=== PATIENT | female | born 1975 | race African-American/Black ===

== ENCOUNTER 2021-02-15 12:52 | Emergency (ER) | payer SELFPAY ==
[~2021-02-15] VITALS: Ht 157.5 cm; Wt 83.2 kg
[2021-02-15] MEDS ORDERED: ASPIRIN CHEWABLE 81 MG TABLET. PO ONE (14:00)
--- NOTE | 2021-02-15 14:01 | ED.ADGEN ---
General Adult EDM: Chief Complaint: FLU SYMPTOM HPI: HPI: Patient is a 45 year old female coming in for left-sided chest pain for the past 3 days. Patient denies any fevers but states she has had nonproductive cough. Patient states the pain radiates up to her neck is worse taking a deep breath. Was diagnosed with COVID-19 9 days ago, tested +7 days ago. Patient states she initially had fevers at the beginning of the illness but has not had any over the past week. Denies any GI complaints. Denies any personal medical history. Family history of diabetes. Denies any upper or lower extremity edema. Review of Systems: Review of Systems: All other systems within normal limits except for as noted in the HPI Current Medications: Current Medications Medications (Trade) Dose Ordered Sig/Tello Start Time Stop Time Status Last Admin Dose Admin Aspirin (Aspirin Chewable) 324 mg 1X ONCE 02/15/21 14:00 02/15/21 14:24 DC 02/15/21 14:40 324 MG Aspirin (Ecotrin) 81 mg STK-MED ONCE 02/15/21 14:14 02/15/21 14:14 DC Info (CONTRAST GIVEN -- Rx MONITORING) 1 each PRN DAILY PRN 02/15/21 16:00 02/17/21 15:59 Iohexol (Omnipaque 350 Mg/ml) 100 ml 1X ONCE 02/15/21 16:00 02/15/21 16:01 DC 02/15/21 16:40 100 ML Methylprednisolone Sodium Succinate (SOLU-Medrol 125MG VIAL) 125 mg 1X ONCE 02/15/21 17:15 02/15/21 17:16 DC Allergies: Allergies: Allergies Coded Allergies Type Severity Reaction Last Updated Verified sulfamethoxazole Allergy Intermediate 02/15/21 Yes trimethoprim Allergy Intermediate 02/15/21 Yes Physical Exam: PE: Constitutional: Well developed, well nourished, no acute distress, non-toxic appearance. [] HENT: Normocephalic, atraumatic, bilateral external ears normal, nose normal. [] Eyes: PERRLA, conjunctiva normal, no discharge. [] Neck: No rigidity, supple, no stridor. No neck tenderness, no crepitus Cardiovascular: Regular rate and rhythm, brisk cap refill [] Lungs & Thorax: Non labored symmetric respirations, no tachypnea or respiratory distress. No chest pain with palpation. Symmetric radial and DP pulses Abdomen: Soft, nondistended. Skin: Warm, dry, no erythema, no rash. [] Back: Unremarkable Extremities: No deformities, range of motion grossly intact, no lower extremity edema [] Neurologic: Alert and oriented X 3, no focal deficits noted. [] Psychologic: Affect normal, judgement normal, mood normal. [] Current Patient Data: Labs: Laboratory Tests Test 02/15/21 14:30 White Blood Count 7.8 x10^3/uL (4.0-11.0) Red Blood Count 4.53 x10^6/uL (3.50-5.40) Hemoglobin 10.5 g/dL (12.0-15.5) L Hematocrit 32.7 % (36.0-47.0) L Mean Corpuscular Volume 72 fL (79-100) L Mean Corpuscular Hemoglobin 23 pg (25-35) L Mean Corpuscular Hemoglobin Concent 32 g/dL (31-37) Red Cell Distribution Width 18.7 % (11.5-14.5) H Platelet Count 284 x10^3/uL (140-400) Neutrophils (%) (Auto) 70 % (31-73) Lymphocytes (%) (Auto) 17 % (24-48) L Monocytes (%) (Auto) 13 % (0-9) H Eosinophils (%) (Auto) 0 % (0-3) Basophils (%) (Auto) 0 % (0-3) Neutrophils # (Auto) 5.4 x10^3/uL (1.8-7.7) Lymphocytes # (Auto) 1.3 x10^3/uL (1.0-4.8) Monocytes # (Auto) 1.0 x10^3/uL (0.0-1.1) Eosinophils # (Auto) 0.0 x10^3/uL (0.0-0.7) Basophils # (Auto) 0.0 x10^3/uL (0.0-0.2) D-Dimer (Araceli) 0.61 ug/mlFEU (0.00-0.50) H Sodium Level 141 mmol/L (136-145) Potassium Level 4.0 mmol/L (3.5-5.1) Chloride Level 106 mmol/L (98-107) Carbon Dioxide Level 31 mmol/L (21-32) Anion Gap 4 (6-14) L Blood Urea Nitrogen 6 mg/dL (7-20) L Creatinine 0.9 mg/dL (0.6-1.0) Estimated GFR (Cockcroft-Gault) 81.6 BUN/Creatinine Ratio 7 (6-20) Glucose Level 103 mg/dL (70-99) H Calcium Level 9.1 mg/dL (8.5-10.1) Total Bilirubin 0.3 mg/dL (0.2-1.0) Aspartate Amino Transferase (AST) 22 U/L (15-37) Alanine Aminotransferase (ALT) 44 U/L (14-59) Alkaline Phosphatase 89 U/L (46-116) Troponin I Quantitative < 0.017 ng/mL (0.000-0.055) Total Protein 7.5 g/dL (6.4-8.2) Albumin 3.3 g/dL (3.4-5.0) L Albumin/Globulin Ratio 0.8 (1.0-1.7) L Laboratory Tests 02/15/21 14:30 Laboratory Tests 02/15/21 14:30 Vital Signs: Vital Signs Date Time Temp Pulse Resp B/P (MAP) Pulse Ox O2 Delivery O2 Flow Rate FiO2 02/15/21 14:00 98.2 86 18 122/68 100 Room Air 98.2 EKG: EKG: Sinus rhythm, heart rate 70/min, normal axis, no ST elevation or depression, no ectopy nonspecific T wave inversion in lead III [] Heart Score: C/O Chest Pain: Yes HEART Score for Chest Pain: HEART Score for Chest Pain Response (Comments) Value History Slighlty/Non-Suspicious 0 ECG Normal 0 Age >45 - < 65 1 Risk Factors 1 or 2 Risk Factors 1 Troponin < Normal Limit 0 Total 2 Risk Factors: Risk Factors: DM, Current or recent (<one month) smoker, HTN, HLP, family history of CAD, obesity. Risk Scores: Score 0 - 3: 2.5% MACE over next 6 weeks - Discharge Home Score 4 - 6: 20.3% MACE over next 6 weeks - Admit for Clinical Observation Score 7 - 10: 72.7% MACE over next 6 weeks - Early Invasive Strategies Radiology/Procedures: Radiology/Procedures: [facility] [address] [place] [address] IMAGING REPORT Signed PATIENT: CARMELA GREEN ACCOUNT: [id number] : 1975 LOCATION: ER AGE: 45 SEX: F EXAM STATUS: PRE ER ORD. PHYSICIAN: MAINOR OCAMPO MD REASON: left chest pain, covid PROCEDURE: CHEST AP ONLY XR CHEST 1V History: Reason: left chest pain, covid / Spl. Instructions: / History: Comparison: None. Findings: Mild multifocal ill-defined opacities. No pleural effusion. No pneumothorax. Portable technique accentuates cardiac size. Impression: 1. Mild multifocal ill-defined opacities, can be seen with viral pneumonia. Electronically signed by: Nuno Maxwell DO (02/15/2021 2:20 PM) [facility] DICTATED and SIGNED BY: NUNO MAXWELL DO DATE: 02/15/21 [id number] [] Course & Med Decision Making: Course & Med Decision Making Pertinent Labs and Imaging studies reviewed. (See chart for details) [] Dragon Disclaimer: Dragon Disclaimer: This electronic medical record was generated, in whole or in part, using a voice recognition dictation system. Departure Departure Impression: Primary Impression: Pneumonia due to 2019-nCoV Disposition: HOME / SELF CARE / HOMELESS Condition: STABLE Patient Instructions: Cough, Adult Scripts Guaifenesin/Codeine Phosphate (Codeine-Guaifen 10-100 mg/5 ml) 120 Ml Liquid 5 ML PO PRN Q6HRS PRN for cough and congestion MDD 20 Milliliter(s) for 6 Days, #120 ML 0 Refills Prov: MAINOR OCAMPO MD 02/15/21 Albuterol Sulfate (PROAIR HFA INHALER) 8.5 Gm Hfa.aer.ad 2 PUFF IH PRN Q4-6HRS PRN for COUGH for 21 Days, #1 INHALER 0 Refills Prov: MAINOR OCAMPO MD 02/15/21 Doxycycline Hyclate (DOXYCYCLINE HYCLATE) 100 Mg Capsule 1 CAP PO BID for antibiotic for 5 Days, #10 CAP Prov: MAINOR OCAMPO MD 02/15/21 Methylprednisolone (MEDROL) 4 Mg Tab.ds.pk 1 PKG PO UD for inflammation, #1 PKG Prov: MAINOR OCAMPO MD 02/15/21 MAINOR OCAMPO MD Feb 15, 2021 14:01
[2021-02-15] MEDS ORDERED: ASPIRIN ENTERIC COATED 81 MG TABLET.DR. PO ONE (14:14)
--- NOTE | 2021-02-15 14:23 | RAD ---
XR CHEST 1V History: Reason: left chest pain, covid / Spl. Instructions: / History: Comparison: None. Findings: Mild multifocal ill-defined opacities. No pleural effusion. No pneumothorax. Portable technique accen tuates cardiac size. Impression: 1. Mild multifocal ill-defined opacities, can be seen with viral pneumonia. Electronically signed by: Nuno Ahumada DO (02/15/2021 2:20 PM) [facility] [place]
[2021-02-15 14:48] LABS: BASO % 0 % (0-3); EOS % 0 % (0-3); HEMATOCRIT 32.7 % (36.0-47.0); HEMOGLOBIN 10.5 g/dL (12.0-15.5); LYMPH # 1.3 x10^3/uL (1.0-4.8); LYMPH % 17 % (24-48); MEAN CORPUSCULAR HEMOGLOBIN 23 pg (25-35); MEAN CORPUSCULAR HGB CONC 32 g/dL (31-37); MEAN CORPUSCULAR VOLUME 72 fL (79-100); MONO % 13 % (0-9); NEUT # 5.4 x10^3/uL (1.8-7.7); NEUT % 70 % (31-73); PLATELET COUNT 284 x10^3/uL (140-400); RED BLOOD COUNT 4.53 x10^6/uL (3.50-5.40); RED CELL DISTRIBUTION WIDTH 18.7 % (11.5-14.5); WHITE BLOOD COUNT 7.8 x10^3/uL (4.0-11.0)
[2021-02-15 14:58] LABS: CALCIUM 9.1 mg/dL (8.5-10.1); CREATININE 0.9 mg/dL (0.6-1.0); GFR 81.6
[2021-02-15 15:04] LABS: ALBUMIN 3.3 g/dL (3.4-5.0); ALBUMIN/GLOBULIN RATIO 0.8 (1.0-1.7); TOTAL BILIRUBIN 0.3 mg/dL (0.2-1.0); TOTAL PROTEIN 7.5 g/dL (6.4-8.2)
[2021-02-15] MEDS ORDERED: CONTRAST GIVEN. MC PRN (16:00)
[2021-02-15] MEDS ORDERED: IOHEXOL 350 MG/ML 100 ML VIAL. IV ONE (16:00)
--- NOTE | 2021-02-15 16:54 | RAD ---
EXAM: CT angiography of the chest with intravenous contrast. HISTORY: Covid 19. Chest pain. Elevated d-dimer. TECHNIQUE: Computed tomographic images of the chest were obtained following the administration of int ravenous contrast according to angiography protocol. Multiplanar reformatting was performed and three dimensional maximum intensity projection images were obtained. *One or more of the following individualized dose reduction techniques were utilized for this examina tion: 1. Automated exposure control. 2. Adjustment of the mA and/or kV according to patient size. 3. Use of iterative reconstruction technique. COMPARISON: None. FINDINGS: There is no convincing pulmonary embolism. The heart is upper normal in size. There is trac e pericardial fluid. There is no pneumothorax or pleural effusion. There is extensive bilateral multi focal groundglass and partially consolidated infiltrate. There are enlarged mediastinal and hilar lym ph nodes, likely reactive in etiology. There is a simple appearing cyst within the left kidney. Follo w-up is not routinely performed for simple cysts. There is no acute finding involving the upper abdom en. There is no acute or suspicious osseous finding. There are mild chronic superior endplate nick lupillo deformities at T12 and L1. IMPRESSION: 1. No evidence of pulmonary emphysema. 2. Bilateral multifocal infiltrate, the pattern of which favors Covid 19 in this Covid 19 positive pa tient. Follow-up to confirm resolution. 3. Mediastinum and hilar lymphadenopathy, likely reactive in etiology. 4. Trace pericardial fluid. Electronically signed by: Deepali Floyd MD (02/15/2021 4:51 PM) [id number]
[2021-02-15] MEDS ORDERED: methylPREDNISolone SOD SUCC PF 125 MG/2 ML VIAL. IV ONE (17:15)
[2021-02-15] MEDS ORDERED: ALBU2.5V8 IH (17:20)
[2021-02-15] MEDS ORDERED: DOXY100C3 PO (17:20)
[2021-02-15] MEDS ORDERED: METH4TAB2 PO (17:20)
[2021-02-15] MEDS ORDERED: GUAI120L35 PO ×2 (17:20→17:23)
--- NOTE | 2021-02-15 17:27 | EKG ---
[facility] [address] [place] [id number] Test Date: 2021-02-15 Test Time: 14:08:21 Pat Name: CARMELA GREEN Department: Room: Gender: F [employer]stitute: : 1975 Requested By: MAINOR OCAMPO Order Number: [id number] Reading MD: Measurements Intervals [place] Rate: 71 P: 31 MS: 126 QRS: 45 QRSD: 82 T: 13 QT: 384 QTc: 422 Interpretive Statements SINUS RHYTHM NORMAL ECG RI6.01 No previous ECG available for comparison
[2021-02-15 18:00] VITALS: BP 126/86
== END 2021-02-15 18:00 | disposition home or self-care (01) ==
LOC: ER 12:52
DX: U07.1 COVID-19 (principal); J12.82 Pneumonia due to coronavirus disease 2019; Z88.1 Allergy status to other antibiotic agents; Z88.2 Allergy status to sulfonamides
CPT/HCPCS: 36415; 71045; 71275; 80053; 84484; 85025; 85379; 93005; 96374; 99285; J2930; Q9967